=== PATIENT | male | born 1945 | race Asian ===

== ENCOUNTER 2023-03-14 09:44 | Emergency (ER) | payer MEDICARE, OTHER ==
[~2023-03-14] VITALS: Ht 172.7 cm; Wt 86.4 kg
[2023-03-14] MEDS ORDERED: BUME1TAB34 PO (09:51)
[2023-03-14] MEDS ORDERED: ROSU10TA72 PO (09:51)
[2023-03-14] MEDS ORDERED: ZINC220C14 PO (09:51)
[2023-03-14] MEDS ORDERED: SACU1TAB7 PO (09:51)
[2023-03-14] MEDS ORDERED: GARL600T2 PO (09:51)
[2023-03-14] MEDS ORDERED: FOLI-130 PO (09:51)
[2023-03-14] MEDS ORDERED: MECL-134 PO (09:51)
[2023-03-14] MEDS ORDERED: ALBU90AE IH (09:51)
[2023-03-14] MEDS ORDERED: CHOL25TA4 PO (09:51)
[2023-03-14] MEDS ORDERED: CYAN500T56 PO (09:51)
[2023-03-14] MEDS ORDERED: DILT60TA3 PO (09:51)
[2023-03-14] MEDS ORDERED: FLUT1AER IH (09:51)
[2023-03-14] MEDS ORDERED: VITA0.4T20 PO (09:51)
[2023-03-14] MEDS ORDERED: TURM500C9 PO (09:51)
[2023-03-14] MEDS ORDERED: ISOS60TA77 PO (09:51)
[2023-03-14] MEDS ORDERED: CLOP75TA60 PO (09:51)
[2023-03-14] MEDS ORDERED: ACETAMINOPHEN 325 MG TABLET PO ONE (10:45)
[2023-03-14 12:12] VITALS: BP 133/65
[2023-03-14] MEDS ORDERED: LIDO1ADH83 TP (13:19)
[2023-03-14] MEDS ORDERED: PERCT PO (13:19)
[2023-03-14] MEDS ORDERED: LIDOCAINE 5% TRANSDERMAL PATCH TD ONE (13:30)
== END 2023-03-14 13:59 | disposition home or self-care (01) ==
LOC: EMS 09:44
DX: R07.81 Pleurodynia (principal); E78.00 Pure hypercholesterolemia, unspecified; I10 Essential (primary) hypertension
CPT/HCPCS: 70450; 71046; 71100; 72125; 99284